=== PATIENT | male | born 1970 | race Caucasian/White ===

== ENCOUNTER → 2017-09-04 | Outpatient (CLI) | payer BC ==
--- NOTE | 2017-09-04 12:25 | P.STRESS ---
- Stress Test Note Stress Test Results/Findings: Exam Performed: stress test Exam Date: 09/04/17 Reason for Exam: Ady Height: 5 ft 10 in Weight: 99.79 kg Protocol: Ady Stage: 2 Duration of Exercise: 8:00 Resting Heart Rate: 81 Resting Blood Pressure: 189/112 Maximum Achieved Heart Rate: 147 Maximum Achieved Blood Pressure: 216/107 85% PMHR: 146 100% PMHR: 172 METS: 9.7 Technologist Comment: Stress Test Results/Findings: This is a 47-year-old gentleman with history of hypertension and smoking being evaluated for evaluation of cardiac status. Stress data: Baseline EKG showed sinus rhythm with normal [place] interval and QRS duration. Blood pressure at rest is 189, 112 with pulse rate of 81. Patient walked on the Ady protocol for 8 minutes achieving a maximal rate of 147 with a blood pressure 200/102. EKGs taken during and after exercise did not reveal any significant changes to suggest ischemia. Final impression: #1. Negative stress test #2. Average exercise capacity #3. Patient did not express any chest pain #4. No arrhythmias are detected.
--- NOTE | 2017-09-06 10:25 | EST ---
Stress Test Results/Findings: Exam Performed: stress test Exam Date: 09/04/17 Reason for Exam: Ady Height: 5 ft 10 in Weight: 99.79 kg Protocol: Ady Stage: 2 Duration of Exercise: 8:00 Resting Heart Rate: 81 Resting Blood Pressure: 189/112 Maximum Achieved Heart Rate: 147 Maximum Achieved Blood Pressure: 216/107 85% PMHR: 146 100% PMHR: 172 METS: 9.7 Technologist Comment: Stress Test Results/Findings: This is a 47-year-old gentleman with history of hypertension and smoking being evaluated for evaluation of cardiac status. Stress data: Baseline EKG showed sinus rhythm with normal [place] interval and QRS duration. Blood pressure at rest is 189, 112 with pulse rate of 81. Patient walked on the Ady protocol for 8 minutes achieving a maximal rate of 147 with a blood pressure 200/102. EKGs taken during and after exercise did not reveal any significant changes to suggest ischemia. Final impression: #1. Negative stress test #2. Average exercise capacity #3. Patient did not express any chest pain #4. No arrhythmias are detected. JUNI
== END | disposition home or self-care (01) ==
LOC: RADNMMAIN 10:36
PROVIDERS: ATTEND Internal Medicine
DX: R07.9 Chest pain, unspecified (principal)
CPT/HCPCS: 93017; 93306